=== PATIENT | male | born 1990 | race Caucasian/White ===

== ENCOUNTER 2021-07-03 11:08 | Outpatient (CLI) | payer OTHER, SELFPAY ==
--- NOTE | ~2021-07-03 | US_ITS ---
US scrotum doppler INDICATION: Palpable scrotal lump. TECHNIQUE: Testicular sonogram utilizing grayscale and color Doppler FINDINGS: The testes are normal in size and appearance. No focal lesions are seen. The right testes measures 4.6 x 2.8 x 3.6 cm centimeters, and the left testis measures 5.1 x 2.6 x 3.6 cm cm. There is normal vascular flow to both testes. No abnormality is seen in the area of palpable concern. The right and left epididymides appear normal. There are small bilateral hydroceles. No evidence for varicocele IMPRESSION: 1. Small bilateral hydroceles. Reviewed, dictated and finalized at location A.
== END 2021-07-03 11:09 | disposition home or self-care (01) ==
LOC: ANHIMG 11:15
PROVIDERS: Visit Provider Student in an Organized Health Care Education/Training Program
DX: N50.89 Other specified disorders of the male genital organs (principal); N43.3 Hydrocele, unspecified
CPT/HCPCS: 76870; 93976